=== PATIENT | female | born 1965 ===

== ENCOUNTER 2025-06-12 16:21 | Emergency (ER) | payer SELFPAY ==
[2025-06-12] MEDS: Diphtheria,Pertussis(Acell),Tetanus Vaccine 0.5 ML Syringe IM ONE (19:17)
== END 2025-06-12 19:30 | disposition home or self-care (01) ==
LOC: DL.ED 16:21
DX: S62.617A Displaced fracture of proximal phalanx of left little finger, initial encounter for closed fracture (principal); Z23 Encounter for immunization; W18.39XA Other fall on same level, initial encounter; Y93.89 Activity, other specified
CPT/HCPCS: 73130-LT; 90471; 90715; 99283; 99283-25